=== PATIENT | female | born 1985 | race Two or more races ===

== ENCOUNTER 2023-11-25 02:27 | Inpatient (IN) | payer SELFPAY ==
[2023-11-25] MEDS ORDERED: Water For Irrigation,Sterile 1,000 ML Container IRR PRN (07:18)
[2023-11-25] MEDS ORDERED: Nalbuphine 10 MG/1 ML Vial IVPUSH PRN (07:18)
[2023-11-25] MEDS ORDERED: Sodium Chloride 0.9% 20 ML SDV IV PRN (07:18)
[2023-11-25] MEDS ORDERED: Ondansetron 4 MG/2 ML SDV IVPUSH PRN (07:18)
[2023-11-25] MEDS ORDERED: Sodium Chloride 0.9% 10 ML Syringe FLUSH PRN (07:18)
[2023-11-25] MEDS ORDERED: Carboprost Tromethamine 250 MCG/1 mL Vial IM PRN (07:18)
[2023-11-25] MEDS ORDERED: Misoprostol 200 MCG Tab PO PRN (07:18)
[2023-11-25] MEDS ORDERED: Methylergonovine 0.2 MG/1 ML Amp IM PRN (07:18)
[2023-11-25] MEDS ORDERED: Sodium Chloride 0.9% 2.5 ML Syringe FLUSH PRN (07:18)
[2023-11-25] MEDS ORDERED: Tranexamic Acid IN NACL,ISO-OS 1,000 MG in Premix Bag 1 BAG IV PRN (07:18)
[2023-11-25] MEDS ORDERED: Lactated Ringers 1,000 ML IV SCH (07:30)
[2023-11-25] MEDS ORDERED: Oxytocin/0.9 % Sodium Chloride 30 UNIT/500 ML BAG IV SCH (07:30)
[2023-11-25] MEDS ORDERED: ePHEDrine 50 MG/ML SDV IVPUSH PRN (07:50)
[2023-11-25] MEDS ORDERED: Phenylephrine HCl In 0.9% NaCl 1 MG/10 ML Syringe IVPUSH PRN (07:50)
[2023-11-25] MEDS ORDERED: dexmedeTOMIDine HCl 200 MCG/2 ML SDV EPIDUR SCH (08:00)
[2023-11-25] MEDS ORDERED: Ropivacaine HCl/PF 400 MG in Premix Bag 1 BAG EPIDUR SCH (08:00)
[2023-11-25] MEDS: Ampicillin 2 GM in Sodium Chloride 0.9% 100 ML IV ONE (08:55)
[2023-11-25 09:12] LABS: HEMATOCRIT 38.3 % (37.0-47.0); HEMOGLOBIN 13.7 g/dL (12.0-16.0); MEAN CORPUSCULAR HEMOGLOBIN 32.4 pg (28.0-32.0); MEAN CORPUSCULAR HGB CONC 35.8 g/dL (32.0-36.0); MEAN CORPUSCULAR VOLUME 90.5 fL (83.0-99.0); MEAN PLATELET VOLUME 9.2 fL (9.4-12.3); PLATELET COUNT,PLT 235 K/uL (150-400); RED BLOOD CELL COUNT 4.23 M/uL (4.10-5.30); WHITE BLOOD CELL COUNT,WBC 11.67 K/uL (3.9-11.3)
[2023-11-25] MEDS: Ampicillin 1 GM in Sodium Chloride 0.9% 50 ML IV SCH (13:41)
[2023-11-25] MEDS ORDERED: Terbutaline 1 MG/ML SDV SUBCUT PRN (19:26)
[2023-11-25] MEDS: Butorphanol 2 MG/ML SDV IVPUSH PRN (19:34)
[2023-11-25] MEDS: Oxytocin/0.9 % Sodium Chloride 30 UNIT/500 ML BAG IV SCH (19:41)
[2023-11-26] MEDS: Labetalol 100 MG/20 ML MDV IVPUSH STA (06:54)
[2023-11-26] MEDS: Lidocaine 1% 50 ML MDV INJECT PRN (08:54)
[2023-11-26] MEDS ORDERED: oxyCODONE 5 MG Tab PO PRN (09:11)
[2023-11-26] MEDS: Benzocaine/Menthol 20%-0.5% Spray 78 GM Cannister TOP PRN (10:30)
[2023-11-26] MEDS: Witch Hazel Medicated Pads 40/Jar TOP PRN (10:30)
[2023-11-26] MEDS: Acetaminophen 500 MG Tab PO PRN (10:31)
[2023-11-26] MEDS: Lanolin 100% Cream 7 GM Tube TOP PRN (10:31)
[2023-11-26] MEDS: Docusate Sodium 100 MG Cap PO PRN (10:32)
[2023-11-26 10:36] LABS: PH,UMBILICAL ARTERIAL 7.277 (7.18-7.38); PH,UMBILICAL VENOUS 7.274 (7.25-7.45)
[2023-11-26] MEDS: Ibuprofen 800 MG Tab PO PRN (20:25)
[2023-11-27 05:54] LABS: BASOPHILS ABSOLUTE AUTO 0.03 K/uL (0.00-0.20); BASOPHILS PERCENT AUTO 0.2 % (0.0-1.0); EOSINOPHILS ABSOLUTE AUTO 0.07 K/uL (0.00-0.45); EOSINOPHILS PERCENT AUTO 0.5 % (0.0-6.0); HEMATOCRIT 34.2 % (37.0-47.0); HEMOGLOBIN 11.7 g/dL (12.0-16.0); IMMATURE GRAN ABSOLUTE AUTO 0.15 K/uL (0.00-0.05); IMMATURE GRAN PERCENT AUTO 1.1 % (0.0-0.4); LYMPHOCYTES ABSOLUTE AUTO 2.42 K/uL (1.00-4.80); LYMPHOCYTES PERCENT AUTO 18.5 % (24.0-44.0); MEAN CORPUSCULAR HEMOGLOBIN 31.3 pg (28.0-32.0); MEAN CORPUSCULAR HGB CONC 34.2 g/dL (32.0-36.0); MEAN CORPUSCULAR VOLUME 91.4 fL (83.0-99.0); MONOCYTES ABSOLUTE AUTO 1.35 K/uL (0.00-0.80); MONOCYTES PERCENT AUTO 10.3 % (0.0-8.0); NEUTROPHILS ABSOLUTE AUTO 9.07 K/uL (1.80-7.70); NEUTROPHILS PERCENT AUTO 69.4 % (41.0-71.0); PLATELET COUNT,PLT 237 K/uL (150-400); RED BLOOD CELL COUNT 3.74 M/uL (4.10-5.30); WHITE BLOOD CELL COUNT,WBC 13.09 K/uL (3.9-11.3)
[2023-11-27 06:21] LABS: A/G RATIO 0.7 (0.9-1.6); ALBUMIN 2.5 g/dL (3.4-5.0); BILIRUBIN TOTAL 0.4 mg/dL (0.2-1.0); CALCIUM 8.9 mg/dL (8.5-10.1); CARBON DIOXIDE,CO2 28.1 mmol/L (21.0-32.0); CREATININE 0.7 mg/dL (0.6-1.0); EST CRCL DRUG DOSING (CG) 99.98 mL/min; POTASSIUM,K 3.9 mmol/L (3.5-5.1); PROTEIN TOTAL,TP 6.2 g/dL (6.4-8.2)
[2023-11-28 06:14] LABS: ALANINE AMINOTRANSFERASE,ALT 74 IU/L (14-63); ASPARTATE AMNIOTRANSFERASE,AST 72 IU/L (15-37)
== END 2023-11-28 14:57 | disposition home or self-care (01) | DRG 807 ==
LOC: MW.OBCHECK 02:27 → EDBD 02:27 → MW.OB 02:30 → MW.OBCHECK 07:18 → OBSVTOIN 11-26 09:11 → MERGE 11-26 09:11 → MW.OB 11-26 13:31
PROVIDERS: ADMIT Obstetrics & Gynecology; ATTEND Obstetrics & Gynecology
PROC: 10E0XZZ Delivery of Products of Conception, External Approach (ICD-10-PCS; principal; 2023-11-26)
PROC: 0KQM0ZZ Repair Perineum Muscle, Open Approach (ICD-10-PCS; 2023-11-26)
DX: O13.4 Gestational [pregnancy-induced] hypertension without significant proteinuria, complicating childbirth (principal); Z37.0 Single live birth; O42.02 Full-term premature rupture of membranes, onset of labor within 24 hours of rupture; O77.0 Labor and delivery complicated by meconium in amniotic fluid; O48.0 Post-term pregnancy; Z3A.41 41 weeks gestation of pregnancy; O70.1 Second degree perineal laceration during delivery
CPT/HCPCS: 36415; 59025; 59409; 76819; 76819-26; 80053; 82803; 84112; 84450; 84460; 85025; 85027; 86592; 86850; 86900; 86901; A9270-GY; J0290; J0595; J1921; J2001; J2590; J3490

== ENCOUNTER 2024-12-18 01:49 | Inpatient (IN) | payer SELFPAY ==
[2024-12-18] MEDS ORDERED: Water For Irrigation,Sterile 1,000 ML Container IRR PRN (02:16)
[2024-12-18] MEDS ORDERED: Sodium Chloride 0.9% 2.5 ML Syringe FLUSH PRN (02:16)
[2024-12-18] MEDS ORDERED: Butorphanol 1 MG/ML SDV IVPUSH PRN (02:16)
[2024-12-18] MEDS ORDERED: Sodium Chloride 0.9% 10 ML Syringe FLUSH PRN (02:16)
[2024-12-18 02:52] LABS: MEAN PLATELET VOLUME 9.4 fL (9.4-12.3); NRBC ABSOLUTE 0.00 K/uL (0.00-0.02); NRBC PERCENT 0.0 /100WBC (0.0-0.2); PLATELET COUNT,PLT 244 K/uL (150-400); RED BLOOD CELL COUNT 4.21 M/uL (4.10-5.30); WHITE BLOOD CELL COUNT,WBC 9.62 K/uL (3.9-11.3)
[2024-12-18] MEDS: Lactated Ringers 1,000 ML IV SCH (02:52)
[2024-12-18 03:12] LABS: A/G RATIO 0.8 (0.9-1.6); ALANINE AMINOTRANSFERASE,ALT 22 IU/L (14-63); ASPARTATE AMNIOTRANSFERASE,AST 28 IU/L (15-37); BILIRUBIN TOTAL 0.4 mg/dL (0.2-1.0); BLOOD UREA NITROGEN,BUN 12 mg/dL (7.0-18.0); CARBON DIOXIDE,CO2 21.8 mmol/L (21.0-32.0); CHLORIDE,CL 102 mmol/L (98-107); CREATININE 0.5 mg/dL (0.6-1.0); GLUCOSE RANDOM 97 mg/dL (74-106); POTASSIUM,K 4.0 mmol/L (3.5-5.1); PROTEIN TOTAL,TP 6.3 g/dL (6.4-8.2); SODIUM,NA 138 mmol/L (136-145)
[2024-12-18] MEDS: Ropivacaine HCl/PF 400 MG in Premix Bag 1 BAG EPIDUR SCH (03:15)
[2024-12-18 03:17] LABS: ESTIMATED GFR 124 mL/min (>60)
[2024-12-18] MEDS ORDERED: ePHEDrine 50 MG/ML SDV IVPUSH PRN (03:26)
[2024-12-18] MEDS ORDERED: dexmedeTOMIDine HCl 200 MCG/2 ML SDV EPIDUR SCH (03:30)
[2024-12-18] MEDS: Oxytocin/0.9 % Sodium Chloride 30 UNIT/500 ML BAG IV SCH (07:42)
[2024-12-18] MEDS ORDERED: Ondansetron 4 MG/2 ML SDV ONE (07:46)
[2024-12-18] MEDS ORDERED: Oxytocin 10 Units/1 ML SDV ONE (07:46)
[2024-12-18] MEDS: Carboprost Tromethamine 250 MCG/1 mL Vial IM PRN (08:00)
[2024-12-18] MEDS ORDERED: Oxytocin 10 Units/1 ML SDV IM ONE (08:25)
[2024-12-18] MEDS ORDERED: Atropine/Diphenoxylate 0.025-2.5 MG Tab PO PRN (08:31)
[2024-12-18] MEDS: ceFAZolin 2 GM in Water For Injection, Sterile 20 ML IVPUSH SCH (09:50)
[2024-12-18] MEDS: Benzocaine/Menthol 20%-0.5% Spray 78 GM Cannister TOP PRN (13:06)
[2024-12-18] MEDS: Witch Hazel Medicated Pads 40/Jar TOP PRN (13:07)
[2024-12-18 22:47] LABS: GROUP B STREP BY PCR NEGATIVE (NEGATIVE)
[2024-12-19] MEDS: Lanolin 100% Cream 7 GM Tube TOP PRN (18:22)
[2024-12-21] MEDS ORDERED: [UNRECOGNIZED DRUG - OTHER] PO SCH (09:00)
[2024-12-21] MEDS ORDERED: FOLATE PO SCH (09:00)
[2024-12-21] MEDS ORDERED: PRENATAL CALC PO SCH (09:00)
[2024-12-21] MEDS ORDERED: IRON PO SCH (09:00)
== END 2024-12-20 13:45 | disposition home or self-care (01) | DRG 806 ==
LOC: MW.OBCHECK 01:49 → MW.OB 01:50 → MW.OBCHECK 02:17 → MW.OB 02:17 → UNDOADMOB 02:17 → OBSVTOIN 07:19 → INTOOBSV 07:19 → OBSVTOIN 08:26 → MW.OB 08:26
PROVIDERS: ADMIT Obstetrics & Gynecology; ATTEND Obstetrics & Gynecology
PROC: 10E0XZZ Delivery of Products of Conception, External Approach (ICD-10-PCS; principal; 2024-12-18)
PROC: 0KQM0ZZ Repair Perineum Muscle, Open Approach (ICD-10-PCS; 2024-12-18)
PROC: 3E0R3BZ Introduction of Anesthetic Agent into Spinal Canal, Percutaneous Approach (ICD-10-PCS; 2024-12-18)
PROC: 10907ZC Drainage of Amniotic Fluid, Therapeutic from Products of Conception, Via Natural or Artificial Opening (ICD-10-PCS; 2024-12-18)
DX: O30.033 Twin pregnancy, monochorionic/diamniotic, third trimester (principal); O72.1 Other immediate postpartum hemorrhage; Z37.2 Twins, both liveborn; O98.52 Other viral diseases complicating childbirth; O13.4 Gestational [pregnancy-induced] hypertension without significant proteinuria, complicating childbirth; O24.429 Gestational diabetes mellitus in childbirth, unspecified control; O99.214 Obesity complicating childbirth; O70.1 Second degree perineal laceration during delivery; Z86.16 Personal history of COVID-19; Z3A.35 35 weeks gestation of pregnancy; Z90.49 Acquired absence of other specified parts of digestive tract; Z98.890 Other specified postprocedural states; Z79.82 Long term (current) use of aspirin; Z79.899 Other long term (current) drug therapy
CPT/HCPCS: 01967; 36415; 51702; 59025; 59409; 80053; 84112; 85014; 85018; 85027; 86592; 86850; 86900; 86901; 87653; A4216; A9270-GY; J0290; J0690; J2371; J2405; J2590; J2765; J2795; J3490; J7120